=== PATIENT | female | born 1945 | race Caucasian/White ===

== ENCOUNTER → 2017-07-25 | Outpatient (CLI) | payer BC, MEDICARE, OTHER ==
[~2017-07-25] MED LIST: BUPROPION XL150 MG PO; CRESTOR10 MG PO; ESCITALOPRAM OX20 MG PO; GEMFIBROZIL600 MG PO; LANTUS 10100 UNITS/ SC; LANTUS 3 M100 UNITS1 SC; LEVOTHYROXINE125 MCG PO; NEXIUM40 MG PO; NOVOLOG 10100 UNITS/ SC; NOVOLOG PE100 UNITS/ SC; SPIRONOLACTONE100 MG PO
== END | disposition home or self-care (01) ==
LOC: CDC 08:27
DX: M79.642 Pain in left hand (principal); G56.02 Carpal tunnel syndrome, left upper limb
CPT/HCPCS: 93000

== ENCOUNTER 2017-09-12 15:59 | Emergency (ER) | payer BC, OTHER ==
[~2017-09-12] VITALS: Ht 149.9 cm; Wt 78.1 kg
[2017-09-12 19:14] VITALS: BP 132/88
== END 2017-09-12 19:19 | disposition home or self-care (01) ==
LOC: EME 15:59
DX: S82.52XA Displaced fracture of medial malleolus of left tibia, initial encounter for closed fracture (principal); M79.642 Pain in left hand; W10.9XXA Fall (on) (from) unspecified stairs and steps, initial encounter; Z98.890 Other specified postprocedural states; I10 Essential (primary) hypertension; E11.9 Type 2 diabetes mellitus without complications; J45.909 Unspecified asthma, uncomplicated; Z88.1 Allergy status to other antibiotic agents
CPT/HCPCS: 73130; 73610; 99281; 99284